=== PATIENT | male | born 1950 | race African-American/Black ===

== ENCOUNTER 2018-11-13 13:38 | Inpatient (IN) | payer MEDICARE, BC ==
[~2018-11-13] VITALS: Ht 167.6 cm; Wt 94.5 kg
[~2018-11-13 13:38] MED LIST: CHOL100046 MT; CLOP75TA16 MT; GABA-531 PO; LOSA100T3 MT; METF-416 MT
[2018-11-13] MEDS ORDERED: SODIUM CHLORIDE 0.9% 1,000 ML IV ONE (21:36)
[2018-11-13] MEDS ORDERED: PIPERACILLIN/TAZ 3.375G PREMIX 50 ML IV NR (21:39)
[2018-11-13] MEDS ORDERED: PIPERACILLIN/TAZOBACTAM 3.375GM/50ML PREMIX IV ONE (21:45)
[2018-11-13] MEDS ORDERED: VANCOMYCIN 1 G PREMIX 200 ML IV SCH (21:45)
[2018-11-13 22:41] LABS: CHLORIDE 105 mEq/L (98-107)
[2018-11-13 22:43] LABS: PROTHROMBIN TIME 10.2 sec (9.1-11.1)
[2018-11-13 23:39] LABS: BASOPHILS % 1.1 % (0.0-2.0); EOSINOPHILS % 1.1 % (0.0-5.0); HEMATOCRIT. 33.7 % (42.0-52.0); LYMPHOCYTES % 18.2 % (20.0-50.0); MEAN CORPUSCULAR HEMOGLOBIN 27.5 pg (28.0-32.0); MEAN CORPUSCULAR VOLUME 84.1 fL (80.0-94.0); MEAN PLATELET VOLUME 8.1 fl (7.4-10.4); MONOCYTES % 6.5 % (2.0-8.0); NEUTROPHILS % 73.1 % (40.0-76.0); PLATELET 312 x1000/uL (130-400); RED CELL DISTRIBUTION WIDTH 13.2 % (11.6-14.6)
[2018-11-14] VITALS (7 sets, daily range): BP systolic 119–142; BP diastolic 47–74
[2018-11-14] MEDS ORDERED: CLONIDINE 0.1MG TABLET PO PRN (00:45)
[2018-11-14] MEDS ORDERED: TRAMADOL 50MG TABLET PO PRN (04:00)
[2018-11-14] MEDS ORDERED: ACETAMINOPHEN 325MG TABLET PO PRN (04:00)
[2018-11-14] MEDS ORDERED: DEXTROSE 50% WATER 50ML SYRINGE IV PRN (04:00)
[2018-11-14] MEDS ORDERED: INSULIN GLARGINE UD 100 UNITS/ML SYR SUBCUT SCH (05:00)
[2018-11-14] MEDS: BLOOD SUGAR DIAGNOSTIC STRIP TEST SCH ×4 (07:44→21:00)
[2018-11-14] MEDS: LOSARTAN POTASSIUM 100 MG TABLET PO SCH (08:53)
[2018-11-14] MEDS: GABAPENTIN 300MG CAPSULE PO SCH ×2 (08:53→16:30)
[2018-11-14] MEDS: CHOLECALCIFEROL (D3) 1000 UNIT TABLET PO SCH (08:53)
[2018-11-14] MEDS: CLOPIDOGREL 75MG TABLET PO SCH (08:53)
[2018-11-14] MEDS ORDERED: MEDICATION NOT ON FORMULARY EA (Cholecalciferol (Vitamin D) 1 CAP) MT SCH (09:00)
[2018-11-14] MEDS ORDERED: MEDICATION NOT ON FORMULARY EA (Clopidogrel Bisulfate (Plavix) 1 TAB) MT SCH (09:00)
[2018-11-14] MEDS ORDERED: MEDICATION NOT ON FORMULARY EA (Gabapentin 300 MG) PO SCH (09:00)
[2018-11-14] MEDS ORDERED: MEDICATION NOT ON FORMULARY EA (Losartan Potassium (Cozaar) 1 TAB) MT SCH (09:00)
[2018-11-14] MEDS: INSULIN LISPRO 100 UNITS/ML SUBCUT SCH ×4 (09:07→21:00)
[2018-11-14 10:09] LABS: CHLORIDE 109 mEq/L (98-107)
[2018-11-14] MEDS: PIPERACILLIN/TAZ 3.375G PREMIX 50 ML IV SCH ×3 (10:52→23:28)
[2018-11-14] MEDS ORDERED: VANCOMYCIN 1500MG in DEXTROSE 5% WATER 250ML IV NR (11:00)
[2018-11-14] MEDS ORDERED: INFLUENZA VIRUS VACCINE(AFLURIA) 0.5ML SYR IM ONE (12:00)
[2018-11-14 12:33] LABS: BASOPHILS % 0.7 % (0.0-2.0); EOSINOPHILS % 1.7 % (0.0-5.0); HEMATOCRIT. 32.7 % (42.0-52.0); HEMOGLOBIN. 10.8 g/dL (14.0-18.0); LYMPHOCYTES % 18.6 % (20.0-50.0); MEAN CORPUSCULAR VOLUME 84.5 fL (80.0-94.0); MEAN PLATELET VOLUME 8.5 fl (7.4-10.4); MONOCYTES % 7.2 % (2.0-8.0); NEUTROPHILS % 71.8 % (40.0-76.0); PLATELET 308 x1000/uL (130-400); RED BLOOD CELL COUNT 3.86 mill/uL (4.7-6.1); RED CELL DISTRIBUTION WIDTH 12.9 % (11.6-14.6)
[2018-11-15] VITALS: BP 123/65
[2018-11-15 04:00] VITALS: BP 126/67
[2018-11-15] MEDS: PIPERACILLIN/TAZ 3.375G PREMIX 50 ML IV SCH ×4 (05:04→21:14)
[2018-11-15] MEDS: VANCOMYCIN 1 G PREMIX 200 ML IV SCH ×2 (05:04→22:32)
[2018-11-15] MEDS: BLOOD SUGAR DIAGNOSTIC STRIP TEST SCH ×4 (06:26→21:14)
[2018-11-15] MEDS: INSULIN LISPRO 100 UNITS/ML SUBCUT SCH ×4 (06:26→22:29)
[2018-11-15 08:00] VITALS: BP 131/71
[2018-11-15] MEDS: CHOLECALCIFEROL (D3) 1000 UNIT TABLET PO SCH (09:30)
[2018-11-15] MEDS: GABAPENTIN 300MG CAPSULE PO SCH ×2 (09:30→17:18)
[2018-11-15] MEDS: CLOPIDOGREL 75MG TABLET PO SCH (09:30)
[2018-11-15] MEDS: LOSARTAN POTASSIUM 100 MG TABLET PO SCH (09:30)
[2018-11-15] MEDS: INSULIN GLARGINE UD 100 UNITS/ML SYR SUBCUT SCH (09:36)
[2018-11-15] MEDS ORDERED: IOHEXOL-350 100 ML BOTTLE ONE (10:46)
[2018-11-15 12:00] VITALS: BP 122/64
[2018-11-15 13:13] LABS: HEMATOCRIT 33.2 % (42.0-52.0); HEMOGLOBIN 10.7 g/dL (14.0-18.0); MEAN CORPUSCULAR HEMOGLOBIN 27.3 pg (28.0-32.0); MEAN CORPUSCULAR VOLUME 84.8 fL (80.0-94.0); PLATELET 317 x1000/uL (130-400); RED BLOOD CELL COUNT 3.91 mill/uL (4.7-6.1); RED CELL DISTRIBUTION WIDTH 13.3 % (11.6-14.6)
[2018-11-15 16:00] VITALS: BP 132/74
[2018-11-15 20:00] VITALS: BP 138/69
[2018-11-16] VITALS: BP 130/70
[2018-11-16 04:00] VITALS: BP 125/69
[2018-11-16] MEDS: PIPERACILLIN/TAZ 3.375G PREMIX 50 ML IV SCH ×4 (04:16→21:06)
[2018-11-16] MEDS: BLOOD SUGAR DIAGNOSTIC STRIP TEST SCH ×4 (07:20→21:06)
[2018-11-16 08:00] VITALS: BP 127/69
[2018-11-16] MEDS: CHOLECALCIFEROL (D3) 1000 UNIT TABLET PO SCH (09:00)
[2018-11-16] MEDS: LOSARTAN POTASSIUM 100 MG TABLET PO SCH (09:00)
[2018-11-16] MEDS: GABAPENTIN 300MG CAPSULE PO SCH ×2 (09:00→17:05)
[2018-11-16] MEDS: CLOPIDOGREL 75MG TABLET PO SCH (09:00)
[2018-11-16] MEDS: INSULIN LISPRO 100 UNITS/ML SUBCUT SCH ×4 (09:57→21:53)
[2018-11-16] MEDS: INSULIN GLARGINE UD 100 UNITS/ML SYR SUBCUT SCH (10:40)
[2018-11-16 12:00] VITALS: BP 144/65
[2018-11-16 16:00] VITALS: BP 142/75
[2018-11-16] MEDS ORDERED: SODIUM CHLORIDE 0.9% 1,000 ML IV ONE (18:45)
[2018-11-16 20:00] VITALS: BP 166/71
[2018-11-16] MEDS ORDERED: VANCOMYCIN 1 G PREMIX 200 ML IV SCH (21:00)
[2018-11-17] VITALS (17 sets, daily range): BP systolic 123–164; BP diastolic 64–93
[2018-11-17] MEDS: PIPERACILLIN/TAZ 3.375G PREMIX 50 ML IV SCH ×3 (05:02→20:58)
[2018-11-17 06:23] LABS: PROTHROMBIN TIME 10.5 sec (9.1-11.1)
[2018-11-17 06:31] LABS: BASOPHILS % 0.9 % (0.0-2.0); EOSINOPHILS % 3.7 % (0.0-5.0); HEMATOCRIT. 31.3 % (42.0-52.0); HEMOGLOBIN. 10.2 g/dL (14.0-18.0); LYMPHOCYTES % 26.1 % (20.0-50.0); MEAN CORPUSCULAR HEMOGLOBIN 27.3 pg (28.0-32.0); MEAN CORPUSCULAR VOLUME 83.6 fL (80.0-94.0); MEAN PLATELET VOLUME 8.3 fl (7.4-10.4); MONOCYTES % 6.4 % (2.0-8.0); NEUTROPHILS % 62.9 % (40.0-76.0); PLATELET 338 x1000/uL (130-400); RED BLOOD CELL COUNT 3.75 mill/uL (4.7-6.1)
[2018-11-17] MEDS: BLOOD SUGAR DIAGNOSTIC STRIP TEST SCH ×4 (06:38→20:57)
[2018-11-17] MEDS: INSULIN LISPRO 100 UNITS/ML SUBCUT SCH ×4 (07:32→21:00)
[2018-11-17] MEDS: GABAPENTIN 300MG CAPSULE PO SCH ×2 (09:00→17:00)
[2018-11-17] MEDS: LOSARTAN POTASSIUM 100 MG TABLET PO SCH (09:00)
[2018-11-17] MEDS: CLOPIDOGREL 75MG TABLET PO SCH (09:00)
[2018-11-17] MEDS: CHOLECALCIFEROL (D3) 1000 UNIT TABLET PO SCH (09:00)
[2018-11-17 11:52] LABS: CREATINE KINASE 55 IU/L (39-308)
[2018-11-17] MEDS: INSULIN GLARGINE UD 100 UNITS/ML SYR SUBCUT SCH (14:10)
[2018-11-17] MEDS: LACTOBACILLUS GG CAPSULE PO SCH (14:10)
[2018-11-17] MEDS ORDERED: HEPARIN SODIUM 1,000 UNIT/1ML VIAL IV ONE (16:01)
[2018-11-17] MEDS ORDERED: LIDOCAINE HCL 1% 20ML VIAL (Pyxis) INJ ONE (17:36)
[2018-11-17] MEDS ORDERED: IODIXANOL 320MG/ML 100 ML BOTTLE IV ONE (17:36)
[2018-11-17] MEDS ORDERED: MIDAZOLAM HCL 2 MG/2 ML VIAL ONE (18:10)
[2018-11-17] MEDS ORDERED: FENTANYL CITRATE/PF 50MCG/ML 2ML VIAL ONE (18:10)
[2018-11-17] MEDS ORDERED: IOHEXOL-300 100 ML BOTTLE ONE (18:15)
[2018-11-17] MEDS ORDERED: CLOPIDOGREL 75MG TABLET PO SCH (19:15)
[2018-11-18] VITALS (9 sets, daily range): BP systolic 100–161; BP diastolic 56–77
[2018-11-18] MEDS: PIPERACILLIN/TAZ 3.375G PREMIX 50 ML IV SCH ×5 (02:18→21:00)
[2018-11-18] MEDS: BLOOD SUGAR DIAGNOSTIC STRIP TEST SCH ×4 (06:00→20:55)
[2018-11-18 07:11] LABS: BASOPHILS % 0.7 % (0.0-2.0); EOSINOPHILS % 2.5 % (0.0-5.0); HEMATOCRIT. 32.9 % (42.0-52.0); HEMOGLOBIN. 10.8 g/dL (14.0-18.0); LYMPHOCYTES % 16.2 % (20.0-50.0); MEAN CORPUSCULAR HEMOGLOBIN 27.4 pg (28.0-32.0); MEAN CORPUSCULAR VOLUME 83.7 fL (80.0-94.0); MEAN PLATELET VOLUME 8.2 fl (7.4-10.4); MONOCYTES % 5.8 % (2.0-8.0); NEUTROPHILS % 74.8 % (40.0-76.0); PLATELET 364 x1000/uL (130-400); RED BLOOD CELL COUNT 3.93 mill/uL (4.7-6.1)
[2018-11-18] MEDS: INSULIN LISPRO 100 UNITS/ML SUBCUT SCH ×4 (07:20→20:55)
[2018-11-18] MEDS: LACTOBACILLUS GG CAPSULE PO SCH (08:55)
[2018-11-18] MEDS: GABAPENTIN 300MG CAPSULE PO SCH ×2 (08:55→17:00)
[2018-11-18] MEDS: CLOPIDOGREL 75MG TABLET PO SCH (08:56)
[2018-11-18] MEDS: LOSARTAN POTASSIUM 100 MG TABLET PO SCH (08:56)
[2018-11-18] MEDS: CHOLECALCIFEROL (D3) 1000 UNIT TABLET PO SCH (08:56)
[2018-11-18] MEDS: INSULIN GLARGINE UD 100 UNITS/ML SYR SUBCUT SCH (10:00)
[2018-11-19] VITALS (8 sets, daily range): BP systolic 102–133; BP diastolic 40–74
[2018-11-19] MEDS: PIPERACILLIN/TAZ 3.375G PREMIX 50 ML IV SCH ×2 (03:22→09:05)
[2018-11-19] MEDS: INSULIN LISPRO 100 UNITS/ML SUBCUT SCH ×2 (06:33→13:02)
[2018-11-19] MEDS: BLOOD SUGAR DIAGNOSTIC STRIP TEST SCH ×2 (06:33→11:50)
[2018-11-19 06:47] LABS: BASOPHILS % 0.7 % (0.0-2.0); EOSINOPHILS % 2.6 % (0.0-5.0); HEMATOCRIT. 32.2 % (42.0-52.0); HEMOGLOBIN. 10.5 g/dL (14.0-18.0); LYMPHOCYTES % 22.5 % (20.0-50.0); MEAN CORPUSCULAR HEMOGLOBIN 27.5 pg (28.0-32.0); MEAN CORPUSCULAR VOLUME 84.7 fL (80.0-94.0); MEAN PLATELET VOLUME 8.2 fl (7.4-10.4); MONOCYTES % 6.2 % (2.0-8.0); PLATELET 349 x1000/uL (130-400); RED CELL DISTRIBUTION WIDTH 13.3 % (11.6-14.6)
[2018-11-19] MEDS: GABAPENTIN 300MG CAPSULE PO SCH (09:04)
[2018-11-19] MEDS: CLOPIDOGREL 75MG TABLET PO SCH (09:04)
[2018-11-19] MEDS: CHOLECALCIFEROL (D3) 1000 UNIT TABLET PO SCH (09:05)
[2018-11-19] MEDS: LACTOBACILLUS GG CAPSULE PO SCH (09:05)
[2018-11-19] MEDS: LOSARTAN POTASSIUM 100 MG TABLET PO SCH (09:05)
[2018-11-19] MEDS: INSULIN GLARGINE UD 100 UNITS/ML SYR SUBCUT SCH (09:32)
[2018-12-14] MEDS ORDERED: AMOX-424 PO (13:55)
[2018-12-14] MEDS ORDERED: FERR325T6 PO (13:55)
[2018-12-14] MEDS ORDERED: ASPI-1159 PO (13:55)
== END 2018-11-19 17:30 | disposition home or self-care (01) | DRG 271 ==
LOC: ER 13:38 → 6EST 23:06 → EDBEDREQ 23:08 → EDBEDREQTM 23:08 → ENRESERV 23:53 → 3WST 11-17 19:32
PROVIDERS: ADMIT Emergency Medicine; ATTEND Emergency Medicine
PROC: 047K34Z Dilation of Right Femoral Artery with Drug-eluting Intraluminal Device, Percutaneous Approach (ICD-10-PCS; principal; 2018-11-17)
PROC: 04CK3ZZ Extirpation of Matter from Right Femoral Artery, Percutaneous Approach (ICD-10-PCS; 2018-11-17)
PROC: 047T3ZZ Dilation of Right Peroneal Artery, Percutaneous Approach (ICD-10-PCS; 2018-11-17)
PROC: 047M3ZZ Dilation of Right Popliteal Artery, Percutaneous Approach (ICD-10-PCS; 2018-11-17)
PROC: 04CM3ZZ Extirpation of Matter from Right Popliteal Artery, Percutaneous Approach (ICD-10-PCS; 2018-11-17)
PROC: B41F1ZZ Fluoroscopy of Right Lower Extremity Arteries using Low Osmolar Contrast (ICD-10-PCS; 2018-11-17)
DX: T82.856A Stenosis of peripheral vascular stent, initial encounter (principal); E11.52 Type 2 diabetes mellitus with diabetic peripheral angiopathy with gangrene; N17.9 Acute kidney failure, unspecified; I70.261 Atherosclerosis of native arteries of extremities with gangrene, right leg; D64.9 Anemia, unspecified; E11.621 Type 2 diabetes mellitus with foot ulcer; L97.519 Non-pressure chronic ulcer of other part of right foot with unspecified severity; N18.9 Chronic kidney disease, unspecified; E11.22 Type 2 diabetes mellitus with diabetic chronic kidney disease; E11.40 Type 2 diabetes mellitus with diabetic neuropathy, unspecified; E11.628 Type 2 diabetes mellitus with other skin complications; I12.9 Hypertensive chronic kidney disease with stage 1 through stage 4 chronic kidney disease, or unspecified chronic kidney disease; Y83.8 Other surgical procedures as the cause of abnormal reaction of the patient, or of later complication, without mention of misadventure at the time of the procedure; Y92.89 Other specified places as the place of occurrence of the external cause; Z87.891 Personal history of nicotine dependence; Z89.612 Acquired absence of left leg above knee; Z79.899 Other long term (current) drug therapy; Z79.84 Long term (current) use of oral hypoglycemic drugs; Z89.411 Acquired absence of right great toe; Z95.828 Presence of other vascular implants and grafts
CPT/HCPCS: 36415; 37227; 37228; 71045; 73630; 75635; 75710; 76770; 80048; 80202; 82550; 82962; 83605; 84484; 85027; 85347; 85651; 87070; 87077; 87186; 90686; 93005; 93922; 96365; 96366; 99285; C1725; C1760; C1769; C1874; C1885; C1887; C1893; C1894; J1644; J1815; J2250; J2543; J3010; J3370; J3490; J7030; J7050; J7060; Q9967

== ENCOUNTER 2018-12-18 18:05 | Inpatient (IN) | payer MEDICARE, BC ==
[~2018-12-18] VITALS: Ht 167.6 cm; Wt 90.3 kg
[~2018-12-18 18:05] MED LIST changes: +AMOX-424 PO; +ASPI-1159 PO; +FERR325T6 PO
[2018-12-18] MEDS ORDERED: DEXTROSE 50% WATER 50ML SYRINGE IV PRN (19:45)
[2018-12-18] MEDS ORDERED: DOCUSATE SODIUM 100MG CAPSULE PO PRN (19:45)
[2018-12-18] MEDS ORDERED: CLONIDINE 0.1MG TABLET PO PRN (19:45)
[2018-12-18] MEDS ORDERED: HYDROCODONE/ACETAMINOPHEN 5/325MG TABLET PO PRN (19:45)
[2018-12-18] MEDS ORDERED: MAGNESIUM/ALUMINUM HYDROXIDE/SIMETHICONE 30ML UDC PO PRN (19:45)
[2018-12-18] MEDS ORDERED: IPRATROPIUM/ALBUTEROL 0.5-3(2.5)MG/3ML NEB HHN PRN (19:45)
[2018-12-18] MEDS ORDERED: ONDANSETRON HCL 4MG/2ML INJ IV PRN (19:45)
[2018-12-18] MEDS ORDERED: DIPHENOXYLATE/ATROPINE 2.5/0.025MG TABLET PO PRN (19:45)
[2018-12-18] MEDS ORDERED: DIPHENHYDRAMINE 50MG/ML VIAL IV PRN (19:45)
[2018-12-18 20:00] VITALS: BP 135/62
[2018-12-18 20:20] VITALS: BP 135/62
[2018-12-18] MEDS: HYDROCODONE/APAP 7.5/325MG 1 TAB TABLET PO PRN (20:43)
[2018-12-18] MEDS ORDERED: ENOXAPARIN 40MG/0.4ML SYR SUBCUT SCH (21:00)
[2018-12-18] MEDS ORDERED: BLOOD SUGAR DIAGNOSTIC STRIP TEST SCH (21:00)
[2018-12-18] MEDS: BLOOD SUGAR DIAGNOSTIC STRIP TEST SCH (21:40)
[2018-12-18] MEDS: SODIUM CHLORIDE 0.9% INJ 3ML FLUSH IVF SCH (21:54)
[2018-12-18] MEDS: PIPERACILLIN/TAZ 3.375G PREMIX 50 ML IV SCH (21:54)
[2018-12-18] MEDS: INSULIN LISPRO 100 UNITS/ML SUBCUT SCH (21:56)
[2018-12-19] MEDS: SODIUM CHLORIDE 0.9% INJ 3ML FLUSH IVF SCH ×2 (05:09→13:41)
[2018-12-19] MEDS: PIPERACILLIN/TAZ 3.375G PREMIX 50 ML IV SCH ×3 (05:09→21:22)
[2018-12-19] MEDS: INSULIN LISPRO 100 UNITS/ML SUBCUT SCH ×4 (06:20→21:20)
[2018-12-19] MEDS: BLOOD SUGAR DIAGNOSTIC STRIP TEST SCH ×4 (06:20→21:00)
[2018-12-19 06:39] LABS: BASOPHILS % 0.9 % (0.0-2.0); EOSINOPHILS % 7.2 % (0.0-5.0); HEMATOCRIT. 22.5 % (42.0-52.0); HEMOGLOBIN. 7.6 g/dL (14.0-18.0); LYMPHOCYTES % 33.4 % (20.0-50.0); MEAN CORPUSCULAR HEMOGLOBIN 27.7 pg (28.0-32.0); MEAN CORPUSCULAR VOLUME 82.5 fL (80.0-94.0); MEAN PLATELET VOLUME 8.5 fl (7.4-10.4); MONOCYTES % 6.5 % (2.0-8.0); PLATELET 255 x1000/uL (130-400); RED BLOOD CELL COUNT 2.73 mill/uL (4.7-6.1); RED CELL DISTRIBUTION WIDTH 14.5 % (11.6-14.6)
[2018-12-19 06:49] LABS: CHLORIDE 107 mEq/L (98-107)
[2018-12-19 08:00] VITALS: BP 124/57
[2018-12-19] MEDS: HYDROCODONE/APAP 7.5/325MG 1 TAB TABLET PO PRN ×2 (09:37→19:24)
[2018-12-19] MEDS: DOCUSATE SODIUM 100MG CAPSULE PO SCH (16:22)
[2018-12-19] MEDS ORDERED: NA PHOS,M-B/NA PHOS,DI-BA ENEMA 118ML PR PRN (19:00)
[2018-12-19 20:00] VITALS: BP 121/60
[2018-12-19] MEDS ORDERED: LACTULOSE 20G/30ML UDC PO PRN (21:00)
[2018-12-19] MEDS: INSULIN GLARGINE UD 100 UNITS/ML SYR SUBCUT SCH (21:20)
[2018-12-20] VITALS (15 sets, daily range): BP systolic 119–133; BP diastolic 53–97
[2018-12-20] MEDS: PIPERACILLIN/TAZ 3.375G PREMIX 50 ML IV SCH ×3 (05:12→21:27)
[2018-12-20] MEDS: SODIUM CHLORIDE 0.9% INJ 3ML FLUSH IVF SCH ×3 (05:12→21:33)
[2018-12-20] MEDS: BLOOD SUGAR DIAGNOSTIC STRIP TEST SCH ×4 (06:03→21:27)
[2018-12-20] MEDS: INSULIN LISPRO 100 UNITS/ML SUBCUT SCH ×4 (06:03→21:27)
[2018-12-20 08:00] LABS: BASOPHILS % 1.1 % (0.0-2.0); EOSINOPHILS % 7.6 % (0.0-5.0); LYMPHOCYTES % 33.6 % (20.0-50.0); MEAN CORPUSCULAR HEMOGLOBIN 27.4 pg (28.0-32.0); MEAN PLATELET VOLUME 8.6 fl (7.4-10.4); MONOCYTES % 6.5 % (2.0-8.0); NEUTROPHILS % 51.2 % (40.0-76.0); PLATELET 242 x1000/uL (130-400); RED BLOOD CELL COUNT 2.45 mill/uL (4.7-6.1); RED CELL DISTRIBUTION WIDTH 14.5 % (11.6-14.6)
[2018-12-20] MEDS: DOCUSATE SODIUM 100MG CAPSULE PO SCH ×2 (08:35→17:25)
[2018-12-20] MEDS: HYDROCODONE/APAP 7.5/325MG 1 TAB TABLET PO PRN ×2 (08:40→22:16)
[2018-12-20 09:40] LABS: HEMATOCRIT. 20.4 % (42.0-52.0); HEMOGLOBIN. 6.7 g/dL (14.0-18.0)
[2018-12-20] MEDS: INSULIN GLARGINE UD 100 UNITS/ML SYR SUBCUT SCH (21:41)
[2018-12-21 00:15] VITALS: BP 131/60
[2018-12-21 01:15] VITALS: BP 121/57
[2018-12-21 05:50] LABS: BASOPHILS % 0.9 % (0.0-2.0); EOSINOPHILS % 7.2 % (0.0-5.0); HEMATOCRIT. 29.1 % (42.0-52.0); HEMOGLOBIN. 10.1 g/dL (14.0-18.0); LYMPHOCYTES % 32.8 % (20.0-50.0); MEAN CORPUSCULAR HEMOGLOBIN 28.7 pg (28.0-32.0); MEAN CORPUSCULAR VOLUME 82.4 fL (80.0-94.0); MEAN PLATELET VOLUME 8.3 fl (7.4-10.4); MONOCYTES % 5.7 % (2.0-8.0); NEUTROPHILS % 53.4 % (40.0-76.0); PLATELET 244 x1000/uL (130-400); RED BLOOD CELL COUNT 3.53 mill/uL (4.7-6.1); RED CELL DISTRIBUTION WIDTH 15.9 % (11.6-14.6)
[2018-12-21 06:49] LABS: FOLIC ACID (FOLATE) SERUM 15.7 ng/mL (>5.38)
[2018-12-21] MEDS: SODIUM CHLORIDE 0.9% INJ 3ML FLUSH IVF SCH ×3 (06:51→21:33)
[2018-12-21] MEDS: PIPERACILLIN/TAZ 3.375G PREMIX 50 ML IV SCH ×3 (06:51→21:25)
[2018-12-21] MEDS: BLOOD SUGAR DIAGNOSTIC STRIP TEST SCH ×4 (06:52→21:23)
[2018-12-21 06:57] LABS: PHOSPHORUS 3.3 mg/dL (2.5-4.9)
[2018-12-21] MEDS: INSULIN LISPRO 100 UNITS/ML SUBCUT SCH ×4 (07:37→21:39)
[2018-12-21 08:00] VITALS: BP 134/53
[2018-12-21] MEDS: DOCUSATE SODIUM 100MG CAPSULE PO SCH ×2 (08:40→17:21)
[2018-12-21] MEDS: ACETAMINOPHEN 325MG TABLET PO PRN (08:40)
[2018-12-21 12:00] LABS: PROSTRATE SPECIFIC AG TOTAL 0.7 ng/mL (0.0-4.0)
[2018-12-21] MEDS ORDERED: CYANOCOBALAMIN 1000MCG/ML VIAL IM SCH (14:15)
[2018-12-21] MEDS: ZINC SULFATE 220 MG ( 50 ) CAPSULE PO SCH (14:42)
[2018-12-21] MEDS: ASCORBIC ACID 500 MG TABLET PO SCH (14:42)
[2018-12-21 20:00] VITALS: BP 139/55
[2018-12-21] MEDS: INSULIN GLARGINE UD 100 UNITS/ML SYR SUBCUT SCH (21:43)
[2018-12-22] MEDS: SODIUM CHLORIDE 0.9% INJ 3ML FLUSH IVF SCH ×3 (06:32→22:50)
[2018-12-22] MEDS: BLOOD SUGAR DIAGNOSTIC STRIP TEST SCH ×4 (06:32→21:27)
[2018-12-22] MEDS: INSULIN LISPRO 100 UNITS/ML SUBCUT SCH ×4 (07:00→21:26)
[2018-12-22 07:35] LABS: EOSINOPHILS % 6.7 % (0.0-5.0); HEMOGLOBIN. 10.3 g/dL (14.0-18.0); MEAN CORPUSCULAR HEMOGLOBIN 27.9 pg (28.0-32.0); MEAN CORPUSCULAR VOLUME 83.8 fL (80.0-94.0); MEAN PLATELET VOLUME 8.5 fl (7.4-10.4); MONOCYTES % 6.5 % (2.0-8.0); NEUTROPHILS % 57.8 % (40.0-76.0); PLATELET 261 x1000/uL (130-400); RED CELL DISTRIBUTION WIDTH 16.2 % (11.6-14.6)
[2018-12-22 08:00] VITALS: BP 146/56
[2018-12-22] MEDS: ASCORBIC ACID 500 MG TABLET PO SCH (08:41)
[2018-12-22] MEDS: ZINC SULFATE 220 MG ( 50 ) CAPSULE PO SCH (08:41)
[2018-12-22] MEDS: DOCUSATE SODIUM 100MG CAPSULE PO SCH ×2 (08:41→17:17)
[2018-12-22] MEDS: HYDROCODONE/APAP 7.5/325MG 1 TAB TABLET PO PRN ×2 (08:43→22:51)
[2018-12-22] MEDS: PIPERACILLIN/TAZ 3.375G PREMIX 50 ML IV SCH ×2 (15:01→21:30)
[2018-12-22 20:00] VITALS: BP 146/79
[2018-12-22] MEDS: INSULIN GLARGINE UD 100 UNITS/ML SYR SUBCUT SCH (22:55)
[2018-12-23] MEDS: INSULIN LISPRO 100 UNITS/ML SUBCUT SCH ×4 (06:15→21:42)
[2018-12-23] MEDS: BLOOD SUGAR DIAGNOSTIC STRIP TEST SCH ×4 (06:15→21:24)
[2018-12-23] MEDS: SODIUM CHLORIDE 0.9% INJ 3ML FLUSH IVF SCH ×3 (06:16→21:44)
[2018-12-23] MEDS: PIPERACILLIN/TAZ 3.375G PREMIX 50 ML IV SCH ×3 (06:16→21:43)
[2018-12-23 08:23] VITALS: BP 138/71
[2018-12-23] MEDS: ASCORBIC ACID 500 MG TABLET PO SCH (08:58)
[2018-12-23] MEDS: ZINC SULFATE 220 MG ( 50 ) CAPSULE PO SCH (08:58)
[2018-12-23] MEDS: DOCUSATE SODIUM 100MG CAPSULE PO SCH ×2 (08:58→16:42)
[2018-12-23] MEDS: ACETAMINOPHEN 325MG TABLET PO PRN (12:55)
[2018-12-23] MEDS ORDERED: HYDROCODONE/APAP 7.5/325MG 1 TAB TABLET PO PRN (19:45)
[2018-12-23] MEDS ORDERED: HYDROCODONE/ACETAMINOPHEN 5/325MG TABLET PO PRN ×2 (19:45→20:15)
[2018-12-23 20:00] VITALS: BP 129/50
[2018-12-23] MEDS: HYDROCODONE/APAP 7.5/325MG 1 TAB TABLET PO PRN (20:25)
[2018-12-23] MEDS: INSULIN GLARGINE UD 100 UNITS/ML SYR SUBCUT SCH (21:43)
[2018-12-24] MEDS: SODIUM CHLORIDE 0.9% INJ 3ML FLUSH IVF SCH ×3 (05:11→21:12)
[2018-12-24] MEDS: PIPERACILLIN/TAZ 3.375G PREMIX 50 ML IV SCH ×3 (05:11→21:12)
[2018-12-24] MEDS: BLOOD SUGAR DIAGNOSTIC STRIP TEST SCH ×4 (06:22→21:05)
[2018-12-24] MEDS: INSULIN LISPRO 100 UNITS/ML SUBCUT SCH ×4 (06:22→21:11)
[2018-12-24 06:30] LABS: BASOPHILS % 1.4 % (0.0-2.0); EOSINOPHILS % 7.3 % (0.0-5.0); HEMATOCRIT. 30.2 % (42.0-52.0); MEAN CORPUSCULAR VOLUME 84.3 fL (80.0-94.0); MEAN PLATELET VOLUME 8.5 fl (7.4-10.4); MONOCYTES % 5.5 % (2.0-8.0); NEUTROPHILS % 50.8 % (40.0-76.0); PLATELET 259 x1000/uL (130-400); RED BLOOD CELL COUNT 3.59 mill/uL (4.7-6.1); RED CELL DISTRIBUTION WIDTH 16.1 % (11.6-14.6)
[2018-12-24 08:00] VITALS: BP 133/71
[2018-12-24] MEDS: DOCUSATE SODIUM 100MG CAPSULE PO SCH ×2 (08:20→16:31)
[2018-12-24] MEDS: ZINC SULFATE 220 MG ( 50 ) CAPSULE PO SCH (08:20)
[2018-12-24] MEDS: HYDROCODONE/APAP 7.5/325MG 1 TAB TABLET PO PRN ×2 (08:21→21:24)
[2018-12-24] MEDS: ASCORBIC ACID 500 MG TABLET PO SCH (08:21)
[2018-12-24 20:00] VITALS: BP 144/56
[2018-12-24] MEDS: INSULIN GLARGINE UD 100 UNITS/ML SYR SUBCUT SCH (21:12)
[2018-12-25] MEDS: PIPERACILLIN/TAZ 3.375G PREMIX 50 ML IV SCH ×3 (05:22→21:37)
[2018-12-25] MEDS: SODIUM CHLORIDE 0.9% INJ 3ML FLUSH IVF SCH ×3 (05:22→21:37)
[2018-12-25] MEDS: BLOOD SUGAR DIAGNOSTIC STRIP TEST SCH ×4 (06:14→21:37)
[2018-12-25] MEDS: INSULIN LISPRO 100 UNITS/ML SUBCUT SCH ×4 (06:15→21:48)
[2018-12-25 08:00] VITALS: BP 140/64
[2018-12-25] MEDS: ASCORBIC ACID 500 MG TABLET PO SCH (08:26)
[2018-12-25] MEDS: DOCUSATE SODIUM 100MG CAPSULE PO SCH ×2 (08:26→17:13)
[2018-12-25] MEDS: ZINC SULFATE 220 MG ( 50 ) CAPSULE PO SCH (08:26)
[2018-12-25 19:09] LABS: 25-HYDROXY VITAMIN D3 27 ng/mL (.)
[2018-12-25 20:00] VITALS: BP 143/64
[2018-12-25] MEDS: INSULIN GLARGINE UD 100 UNITS/ML SYR SUBCUT SCH (21:38)
[2018-12-25] MEDS: HYDROCODONE/APAP 7.5/325MG 1 TAB TABLET PO PRN (21:49)
[2018-12-26] MEDS: SODIUM CHLORIDE 0.9% INJ 3ML FLUSH IVF SCH ×3 (06:29→21:55)
[2018-12-26] MEDS: BLOOD SUGAR DIAGNOSTIC STRIP TEST SCH ×4 (06:29→21:29)
[2018-12-26] MEDS: PIPERACILLIN/TAZ 3.375G PREMIX 50 ML IV SCH ×3 (06:29→21:54)
[2018-12-26 07:16] LABS: EOSINOPHILS % 6.7 % (0.0-5.0); HEMATOCRIT. 32.6 % (42.0-52.0); HEMOGLOBIN. 10.6 g/dL (14.0-18.0); LYMPHOCYTES % 34.3 % (20.0-50.0); MEAN CORPUSCULAR HEMOGLOBIN 27.7 pg (28.0-32.0); MEAN CORPUSCULAR VOLUME 84.6 fL (80.0-94.0); MEAN PLATELET VOLUME 8.7 fl (7.4-10.4); MONOCYTES % 6.6 % (2.0-8.0); NEUTROPHILS % 51.4 % (40.0-76.0); PLATELET 271 x1000/uL (130-400); RED BLOOD CELL COUNT 3.85 mill/uL (4.7-6.1)
[2018-12-26 08:00] VITALS: BP 139/68
[2018-12-26] MEDS: INSULIN LISPRO 100 UNITS/ML SUBCUT SCH ×4 (09:00→21:55)
[2018-12-26] MEDS: ZINC SULFATE 220 MG ( 50 ) CAPSULE PO SCH (10:12)
[2018-12-26] MEDS: DOCUSATE SODIUM 100MG CAPSULE PO SCH ×2 (10:12→18:00)
[2018-12-26] MEDS: ASCORBIC ACID 500 MG TABLET PO SCH (10:12)
[2018-12-26] MEDS ORDERED: ERGOCALCIFEROL 50000UNITS CAPSULE PO SCH (12:00)
[2018-12-26 20:00] VITALS: BP 142/64
[2018-12-26] MEDS: HYDROCODONE/APAP 7.5/325MG 1 TAB TABLET PO PRN (20:42)
[2018-12-26] MEDS: INSULIN GLARGINE UD 100 UNITS/ML SYR SUBCUT SCH (21:56)
[2018-12-27] MEDS: SODIUM CHLORIDE 0.9% INJ 3ML FLUSH IVF SCH ×3 (05:08→21:22)
[2018-12-27] MEDS: PIPERACILLIN/TAZ 3.375G PREMIX 50 ML IV SCH ×3 (05:08→21:22)
[2018-12-27] MEDS: INSULIN LISPRO 100 UNITS/ML SUBCUT SCH ×4 (06:14→21:00)
[2018-12-27] MEDS: BLOOD SUGAR DIAGNOSTIC STRIP TEST SCH ×4 (06:14→21:19)
[2018-12-27 08:00] VITALS: BP 118/46
[2018-12-27] MEDS: DOCUSATE SODIUM 100MG CAPSULE PO SCH ×2 (09:34→17:47)
[2018-12-27] MEDS: ASCORBIC ACID 500 MG TABLET PO SCH (09:34)
[2018-12-27] MEDS: ZINC SULFATE 220 MG ( 50 ) CAPSULE PO SCH (09:34)
[2018-12-27 20:00] VITALS: BP 146/66
[2018-12-27] MEDS: HYDROCODONE/APAP 7.5/325MG 1 TAB TABLET PO PRN (20:18)
[2018-12-27] MEDS: INSULIN GLARGINE UD 100 UNITS/ML SYR SUBCUT SCH (21:25)
[2018-12-28] MEDS: SODIUM CHLORIDE 0.9% INJ 3ML FLUSH IVF SCH ×2 (05:09→13:17)
[2018-12-28] MEDS: PIPERACILLIN/TAZ 3.375G PREMIX 50 ML IV SCH ×2 (05:09→13:11)
[2018-12-28] MEDS: BLOOD SUGAR DIAGNOSTIC STRIP TEST SCH ×2 (06:19→11:40)
[2018-12-28] MEDS: INSULIN LISPRO 100 UNITS/ML SUBCUT SCH ×2 (06:19→13:00)
[2018-12-28 08:00] VITALS: BP 134/48
[2018-12-28] MEDS: ZINC SULFATE 220 MG ( 50 ) CAPSULE PO SCH (10:12)
[2018-12-28] MEDS: DOCUSATE SODIUM 100MG CAPSULE PO SCH (10:12)
[2018-12-28] MEDS: ASCORBIC ACID 500 MG TABLET PO SCH (10:12)
[2018-12-28 12:58] VITALS: BP 134/68
[2018-12-28 13:17] VITALS: BP 134/68
[2018-12-28] MEDS: HYDROCODONE/APAP 7.5/325MG 1 TAB TABLET PO PRN (13:17)
== END 2018-12-28 16:06 | disposition home health service (06) | DRG 74 ==
PROVIDERS: ADMIT Physical Medicine & Rehabilitation Spinal Cord Injury Medicine; ATTEND Family Medicine Adult Medicine
PROC: 30233N1 Transfusion of Nonautologous Red Blood Cells into Peripheral Vein, Percutaneous Approach (ICD-10-PCS; principal; 2018-12-20)
DX: E11.42 Type 2 diabetes mellitus with diabetic polyneuropathy (principal); E11.52 Type 2 diabetes mellitus with diabetic peripheral angiopathy with gangrene; N17.9 Acute kidney failure, unspecified; D64.9 Anemia, unspecified; R53.81 Other malaise; E11.22 Type 2 diabetes mellitus with diabetic chronic kidney disease; N18.9 Chronic kidney disease, unspecified; E11.319 Type 2 diabetes mellitus with unspecified diabetic retinopathy without macular edema; G54.6 Phantom limb syndrome with pain; I12.9 Hypertensive chronic kidney disease with stage 1 through stage 4 chronic kidney disease, or unspecified chronic kidney disease; E11.621 Type 2 diabetes mellitus with foot ulcer; L97.519 Non-pressure chronic ulcer of other part of right foot with unspecified severity; R26.9 Unspecified abnormalities of gait and mobility; E55.9 Vitamin D deficiency, unspecified; Z83.3 Family history of diabetes mellitus; Z97.14 Presence of artificial left leg (complete) (partial); Z89.511 Acquired absence of right leg below knee
CPT/HCPCS: 36415; 80048; 82270; 82306; 82607; 82728; 82746; 82962; 83540; 83550; 83735; 84100; 84134; 84153; 84443; 86850; 86900; 86920; 93970; 97110; 97116; 97163; 97166; 97530; 97535; J1815; J2543; J3420; J7050; P9016; G0103

== ENCOUNTER 2019-10-19 14:28 | Inpatient (IN) | payer MEDICARE, BC ==
[~2019-10-19] VITALS: Ht 195.6 cm; Wt 99.8 kg
[~2019-10-19 14:28] MED LIST changes: -ASPI-1159 PO; +ASPI-1497 PO; -CLOP75TA16 MT; +CLOP75TA4 MT
[2019-10-19 17:29] LABS: BASOPHILS % 0.9 % (0.0-2.0); CHLORIDE 115 mEq/L (98-107); EOSINOPHILS % 2.2 % (0.0-5.0); HEMATOCRIT. 36.3 % (42.0-52.0); HEMOGLOBIN. 11.4 g/dL (14.0-18.0); LYMPHOCYTES % 30.2 % (20.0-50.0); MEAN CORPUSCULAR HEMOGLOBIN 26.4 pg (28.0-32.0); MEAN CORPUSCULAR VOLUME 83.7 fL (80.0-94.0); MEAN PLATELET VOLUME 9.2 fl (7.4-10.4); MONOCYTES % 5.6 % (2.0-8.0); NEUTROPHILS % 61.1 % (40.0-76.0); PLATELET 240 x1000/uL (130-400); RED BLOOD CELL COUNT 4.33 mill/uL (4.7-6.1); RED CELL DISTRIBUTION WIDTH 15.8 % (11.6-14.6)
[2019-10-19] MEDS ORDERED: ATROPINE SULFATE 1MG/ML VIAL IV ONE (18:45)
[2019-10-19] MEDS ORDERED: MAGNESIUM/ALUMINUM HYDROXIDE/SIMETHICONE 30ML UDC PO PRN (19:45)
[2019-10-19] MEDS ORDERED: LORAZEPAM 0.5MG TABLET PO PRN (19:45)
[2019-10-19] MEDS ORDERED: ACETAMINOPHEN 325MG TABLET PO PRN (19:45)
[2019-10-19] MEDS ORDERED: GUAIFENESIN 200MG/10ML SUGAR FREE UDC PO PRN (19:45)
[2019-10-19] MEDS ORDERED: DIPHENHYDRAMINE 50MG/ML VIAL IV PRN (19:45)
[2019-10-19] MEDS ORDERED: HYDROCODONE/ACETAMINOPHEN 5/325MG TABLET PO PRN (19:45)
[2019-10-19] MEDS ORDERED: IPRATROPIUM/ALBUTEROL 0.5-3(2.5)MG/3ML NEB HHN PRN (19:45)
[2019-10-19] MEDS ORDERED: ONDANSETRON HCL 4MG/2ML INJ IV PRN (19:45)
[2019-10-19] MEDS ORDERED: SODIUM BICARBONATE 8.4% 1 MEQ/ML 50ML SYR IV ONE (21:15)
[2019-10-19] MEDS ORDERED: CALCIUM GLUCONATE 100MG/ML 10ML VIAL IV SCH (21:25)
[2019-10-19] MEDS: CLONIDINE 0.1MG TABLET PO PRN (22:06)
[2019-10-19 23:30] VITALS: BP 136/47
[2019-10-19] MEDS ORDERED: AMLODIPINE 2.5MG TABLET PO ONE (23:30)
[2019-10-19] MEDS ORDERED: DEXTROSE 50% WATER 50ML SYRINGE IV PRN (23:45)
[2019-10-20] VITALS (14 sets, daily range): BP systolic 134–164; BP diastolic 44–70
[2019-10-20] MEDS: BLOOD SUGAR DIAGNOSTIC STRIP TEST SCH ×4 (00:48→22:00)
[2019-10-20] MEDS: DOCUSATE SODIUM 100MG CAPSULE PO PRN ×2 (03:02→16:54)
[2019-10-20] MEDS: ENOXAPARIN 30MG/0.3ML SYR SUBCUT SCH ×2 (06:12→16:45)
[2019-10-20 06:47] LABS: CHLORIDE 114 mEq/L (98-107)
[2019-10-20 06:56] LABS: BASOPHILS % 0.6 % (0.0-2.0); EOSINOPHILS % 3.5 % (0.0-5.0); HEMATOCRIT. 31.8 % (42.0-52.0); HEMOGLOBIN. 10.3 g/dL (14.0-18.0); LYMPHOCYTES % 35.6 % (20.0-50.0); MEAN CORPUSCULAR HEMOGLOBIN 26.5 pg (28.0-32.0); MEAN CORPUSCULAR VOLUME 81.7 fL (80.0-94.0); MEAN PLATELET VOLUME 9.6 fl (7.4-10.4); MONOCYTES % 7.2 % (2.0-8.0); NEUTROPHILS % 53.1 % (40.0-76.0); PLATELET 217 x1000/uL (130-400); RED BLOOD CELL COUNT 3.89 mill/uL (4.7-6.1); RED CELL DISTRIBUTION WIDTH 15.8 % (11.6-14.6)
[2019-10-20 06:58] LABS: LDL CHOLESTEROL 88 mg/dL (5-100)
[2019-10-20 07:00] LABS: CREATINE KINASE 65 IU/L (39-308)
[2019-10-20 07:01] LABS: HDL CHOLESTEROL 28 mg/dL (40-59)
[2019-10-20] MEDS: INSULIN LISPRO 100 UNITS/ML SUBCUT SCH ×4 (07:18→22:04)
[2019-10-20] MEDS: GABAPENTIN 300MG CAPSULE PO SCH (16:53)
[2019-10-20 20:47] LABS: CLARITY URINE CLEAR (CLEAR); COLOR URINE YELLOW (YELLOW); KETONES URINE NEGATIVE (NEGATIVE); LEUKOCYTE ESTERASE URINE NEGATIVE (NEGATIVE); NITRITE URINE NEGATIVE (NEGATIVE); OCCULT BLOOD URINE NEGATIVE (NEGATIVE); PROTEIN URINE 2+ (NEGATIVE); SPECIFIC GRAVITY URINE 1.017 (1.005-1.030); UROBILINOGEN URINE 0.2 E.U./dL (0.2-1.0)
[2019-10-21] VITALS (16 sets, daily range): BP systolic 129–179; BP diastolic 51–81
[2019-10-21] MEDS: INSULIN LISPRO 100 UNITS/ML SUBCUT SCH ×4 (07:01→22:00)
[2019-10-21] MEDS: BLOOD SUGAR DIAGNOSTIC STRIP TEST SCH ×4 (07:01→21:35)
[2019-10-21 07:12] LABS: CHLORIDE 115 mEq/L (98-107)
[2019-10-21 07:14] LABS: PROTHROMBIN TIME 10.3 sec (9.6-11.0)
[2019-10-21 07:28] LABS: BASOPHILS % 0.8 % (0.0-2.0); HEMATOCRIT. 31.1 % (42.0-52.0); HEMOGLOBIN. 9.9 g/dL (14.0-18.0); LYMPHOCYTES % 40.2 % (20.0-50.0); MEAN CORPUSCULAR HEMOGLOBIN 26.4 pg (28.0-32.0); MEAN CORPUSCULAR VOLUME 82.6 fL (80.0-94.0); MEAN PLATELET VOLUME 9.5 fl (7.4-10.4); MONOCYTES % 7.4 % (2.0-8.0); NEUTROPHILS % 47.6 % (40.0-76.0); PLATELET 219 x1000/uL (130-400); RED BLOOD CELL COUNT 3.76 mill/uL (4.7-6.1); RED CELL DISTRIBUTION WIDTH 15.5 % (11.6-14.6)
[2019-10-21] MEDS: ASPIRIN 81MG EC TABLET PO SCH (08:32)
[2019-10-21] MEDS: GABAPENTIN 300MG CAPSULE PO SCH ×2 (08:32→16:50)
[2019-10-21] MEDS ORDERED: CLOPIDOGREL 75MG TABLET PO SCH (09:00)
[2019-10-21] MEDS ORDERED: ALBUTEROL (0.083%) 2.5MG/3ML NEB HHN NR (09:45)
[2019-10-21] MEDS ORDERED: SODIUM POLYSTYRENE SULFONATE 15 G/60 ML BOT PO NR (10:00)
[2019-10-21] MEDS ORDERED: LIDOCAINE HCL 1% 20ML VIAL (Pyxis) INJ ONE (11:46)
[2019-10-21] MEDS ORDERED: GENTAMICIN/NS IRRIGATION 500 ML IR ONE (11:46)
[2019-10-21] MEDS ORDERED: CEFAZOLIN 1000MG PREMIX 100 ML IV ONE (11:49)
[2019-10-21] MEDS ORDERED: MIDAZOLAM HCL 2 MG/2 ML VIAL ONE ×2 (12:27→12:55)
[2019-10-21] MEDS ORDERED: FENTANYL CITRATE/PF 50MCG/ML 2ML VIAL ONE (12:27)
[2019-10-21] MEDS ORDERED: HYDROCODONE/ACETAMINOPHEN 5/325MG TABLET PO PRN (14:15)
[2019-10-21] MEDS ORDERED: VANCOMYCIN 1 G PREMIX 200 ML IV SCH (16:00)
[2019-10-21] MEDS: CEFAZOLIN 1000MG PREMIX 50 ML IV SCH (16:37)
[2019-10-21] MEDS: DOCUSATE SODIUM 100MG CAPSULE PO PRN (16:50)
[2019-10-21] MEDS: CLONIDINE 0.1MG TABLET PO PRN (21:57)
[2019-10-22] VITALS (13 sets, daily range): BP systolic 143–169; BP diastolic 61–84
[2019-10-22] MEDS: MORPHINE SULFATE 2 MG/ML CPJ (NOT FOR IM USE) IV PRN ×2 (04:26→14:25)
[2019-10-22] MEDS: BLOOD SUGAR DIAGNOSTIC STRIP TEST SCH ×4 (06:46→20:40)
[2019-10-22 06:52] LABS: BASOPHILS % 0.7 % (0.0-2.0); EOSINOPHILS % 4.4 % (0.0-5.0); HEMOGLOBIN. 10.2 g/dL (14.0-18.0); LYMPHOCYTES % 24.6 % (20.0-50.0); MEAN CORPUSCULAR VOLUME 82.3 fL (80.0-94.0); MEAN PLATELET VOLUME 9.3 fl (7.4-10.4); MONOCYTES % 7.3 % (2.0-8.0); PLATELET 212 x1000/uL (130-400); RED BLOOD CELL COUNT 3.77 mill/uL (4.7-6.1); RED CELL DISTRIBUTION WIDTH 15.4 % (11.6-14.6)
[2019-10-22 07:00] LABS: CHLORIDE 112 mEq/L (98-107)
[2019-10-22] MEDS: INSULIN LISPRO 100 UNITS/ML SUBCUT SCH ×4 (08:13→20:55)
[2019-10-22] MEDS: ASPIRIN 81MG EC TABLET PO SCH (08:14)
[2019-10-22] MEDS: GABAPENTIN 300MG CAPSULE PO SCH ×2 (08:14→17:37)
[2019-10-22] MEDS: CEFAZOLIN 1000MG PREMIX 50 ML IV SCH ×3 (08:14→17:37)
[2019-10-22] MEDS: CLONIDINE 0.1MG TABLET PO PRN (21:54)
[2019-10-23] VITALS: BP 137/69
[2019-10-23 01:11] VITALS: BP 137/69
[2019-10-23 02:00] VITALS: BP 136/78
== END 2019-10-23 03:00 | DRG 242 ==
LOC: ER 14:28 → ENRESERV 20:41 → 3WST 22:48
PROVIDERS: ADMIT Family Medicine Adult Medicine; ATTEND Family Medicine Adult Medicine
PROC: 0JH606Z Insertion of Pacemaker, Dual Chamber into Chest Subcutaneous Tissue and Fascia, Open Approach (ICD-10-PCS; principal; 2019-10-21)
PROC: 02HK3JZ Insertion of Pacemaker Lead into Right Ventricle, Percutaneous Approach (ICD-10-PCS; 2019-10-21)
PROC: 02H63JZ Insertion of Pacemaker Lead into Right Atrium, Percutaneous Approach (ICD-10-PCS; 2019-10-21)
DX: I49.5 Sick sinus syndrome (principal); E43 Unspecified severe protein-calorie malnutrition; N17.9 Acute kidney failure, unspecified; I12.9 Hypertensive chronic kidney disease with stage 1 through stage 4 chronic kidney disease, or unspecified chronic kidney disease; E11.51 Type 2 diabetes mellitus with diabetic peripheral angiopathy without gangrene; E11.22 Type 2 diabetes mellitus with diabetic chronic kidney disease; D64.9 Anemia, unspecified; I44.1 Atrioventricular block, second degree; E11.621 Type 2 diabetes mellitus with foot ulcer; E87.5 Hyperkalemia; L97.519 Non-pressure chronic ulcer of other part of right foot with unspecified severity; N18.9 Chronic kidney disease, unspecified; E11.40 Type 2 diabetes mellitus with diabetic neuropathy, unspecified; K59.00 Constipation, unspecified; Z79.02 Long term (current) use of antithrombotics/antiplatelets; Z79.82 Long term (current) use of aspirin; Z87.891 Personal history of nicotine dependence; Z89.512 Acquired absence of left leg below knee; Z79.899 Other long term (current) drug therapy; Z79.2 Long term (current) use of antibiotics; Z79.84 Long term (current) use of oral hypoglycemic drugs; Z89.421 Acquired absence of other right toe(s); Z68.26 Body mass index [BMI] 26.0-26.9, adult
CPT/HCPCS: 33208; 36415; 71045; 80048; 80053; 80061; 81003; 82550; 82962; 83735; 83880; 84132; 84443; 84484; 85025; 93005; 93306; 93970; 96372; 96374; 96375; 97162; 97166; 97530; 99291; A4565; C1785; C1898; J0461; J0610; J0690; J1650; J1815; J2250; J2270; J3010; J3370; J3490

== ENCOUNTER 2019-11-12 19:49 | Inpatient (IN) | payer MEDICARE, BC ==
[~2019-11-12] VITALS: Ht 167.6 cm; Wt 100.2 kg
[~2019-11-12 19:49] MED LIST changes: -AMOX-424 PO
[2019-11-12 20:00] VITALS: BP 142/66
[2019-11-12] MEDS ORDERED: ACETAMINOPHEN 325MG TABLET PO PRN (21:15)
[2019-11-12] MEDS ORDERED: CLONIDINE 0.1MG TABLET PO PRN (21:15)
[2019-11-12] MEDS ORDERED: DEXTROSE 50% WATER 50ML SYRINGE IV PRN (21:15)
[2019-11-12 22:00] VITALS: BP 142/66
[2019-11-12] MEDS ORDERED: LORAZEPAM 0.5MG TABLET PO PRN (22:30)
[2019-11-12] MEDS ORDERED: MAGNESIUM HYDROXIDE 400MG/5ML 30ML UDC PO PRN (22:30)
[2019-11-12] MEDS ORDERED: DIPHENHYDRAMINE 50MG/ML VIAL IV PRN (22:30)
[2019-11-12] MEDS ORDERED: SENNOSIDES 8.6MG TABLET PO PRN (22:30)
[2019-11-12] MEDS ORDERED: IPRATROPIUM/ALBUTEROL 0.5-3(2.5)MG/3ML NEB HHN PRN (22:30)
[2019-11-12] MEDS ORDERED: MORPHINE SULFATE 2 MG/ML CPJ (NOT FOR IM USE) IV PRN (22:30)
[2019-11-12] MEDS ORDERED: GUAIFENESIN/CODEINE 200-20MG/10ML UDC PO PRN (22:30)
[2019-11-12] MEDS ORDERED: ONDANSETRON HCL 4MG/2ML INJ IV PRN (22:30)
[2019-11-12] MEDS ORDERED: DOCUSATE SODIUM 100MG CAPSULE PO PRN (22:30)
[2019-11-12] MEDS: SODIUM HYPOCHLORITE (0.25%) 480ML SOLUTION (HALF STRENGTH) TOP SCH (22:30)
[2019-11-12] MEDS: GABAPENTIN 300MG CAPSULE PO SCH (22:39)
[2019-11-12] MEDS: BLOOD SUGAR DIAGNOSTIC STRIP TEST SCH (22:51)
[2019-11-12] MEDS: INSULIN LISPRO 100 UNITS/ML SUBCUT SCH (22:52)
[2019-11-13] MEDS ORDERED: LEVOFLOXACIN 500MG PREMIX 100 ML IV SCH
[2019-11-13] MEDS: SODIUM HYPOCHLORITE (0.25%) 480ML SOLUTION (HALF STRENGTH) TOP SCH ×3 (05:32→22:00)
[2019-11-13] MEDS: BLOOD SUGAR DIAGNOSTIC STRIP TEST SCH ×4 (06:18→21:00)
[2019-11-13] MEDS: INSULIN LISPRO 100 UNITS/ML SUBCUT SCH ×3 (06:28→22:14)
[2019-11-13] MEDS ORDERED: BLOOD SUGAR DIAGNOSTIC STRIP TEST SCH (06:30)
[2019-11-13 08:00] VITALS: BP 148/78
[2019-11-13 08:17] LABS: HEMATOCRIT. 32.9 % (42.0-52.0); HEMOGLOBIN. 10.8 g/dL (14.0-18.0); LYMPHOCYTES % 41.9 % (20.0-50.0); MEAN CORPUSCULAR HEMOGLOBIN 27.3 pg (28.0-32.0); MEAN PLATELET VOLUME 8.7 fl (7.4-10.4); MONOCYTES % 7.7 % (2.0-8.0); NEUTROPHILS % 40.4 % (40.0-76.0); PLATELET 225 x1000/uL (130-400); RED BLOOD CELL COUNT 3.97 mill/uL (4.7-6.1); RED CELL DISTRIBUTION WIDTH 15.5 % (11.6-14.6)
[2019-11-13] MEDS ORDERED: INSULIN LISPRO 100 UNITS/ML SUBCUT SCH (09:00)
[2019-11-13] MEDS: DOCUSATE SODIUM 250MG CAPSULE PO SCH (09:56)
[2019-11-13] MEDS: ASPIRIN 81MG TABLET PO SCH (09:56)
[2019-11-13] MEDS: AMLODIPINE 5MG TABLET PO SCH (09:57)
[2019-11-13] MEDS: GABAPENTIN 300MG CAPSULE PO SCH ×2 (09:57→22:08)
[2019-11-13] MEDS: CLOPIDOGREL 75MG TABLET PO SCH (09:58)
[2019-11-13 10:11] LABS: CHLORIDE 110 mEq/L (98-107)
[2019-11-13] MEDS: HYDROCODONE/ACETAMINOPHEN 5/325MG TABLET PO PRN (10:24)
[2019-11-13] MEDS ORDERED: LEVOFLOXACIN 500MG PREMIX 100 ML IV NR (13:00)
[2019-11-13] MEDS: HEPARIN 5000 UNITS/ML VIAL SUBCUT SCH ×2 (13:05→22:08)
[2019-11-13 20:00] VITALS: BP 139/63
[2019-11-13] MEDS ORDERED: MAGNESIUM/ALUMINUM HYDROXIDE/SIMETHICONE 30ML UDC PO PRN (20:00)
[2019-11-13] MEDS ORDERED: LEVOFLOXACIN 250MG PREMIX 50 ML IV SCH (21:00)
[2019-11-13] MEDS ORDERED: INSULIN GLARGINE UD 100 UNITS/ML SYR SUBCUT SCH ×2 (22:00)
[2019-11-14] MEDS: SODIUM HYPOCHLORITE (0.25%) 480ML SOLUTION (HALF STRENGTH) TOP SCH ×3 (05:04→22:00)
[2019-11-14] MEDS: BLOOD SUGAR DIAGNOSTIC STRIP TEST SCH ×4 (06:09→21:51)
[2019-11-14] MEDS: INSULIN LISPRO 100 UNITS/ML SUBCUT SCH ×4 (06:10→22:50)
[2019-11-14 07:23] LABS: BASOPHILS % 0.7 % (0.0-2.0); EOSINOPHILS % 8.5 % (0.0-5.0); HEMATOCRIT. 31.7 % (42.0-52.0); HEMOGLOBIN. 10.6 g/dL (14.0-18.0); LYMPHOCYTES % 37.2 % (20.0-50.0); MEAN CORPUSCULAR HEMOGLOBIN 27.6 pg (28.0-32.0); MEAN CORPUSCULAR VOLUME 82.3 fL (80.0-94.0); MONOCYTES % 5.9 % (2.0-8.0); NEUTROPHILS % 47.7 % (40.0-76.0); PLATELET 218 x1000/uL (130-400); RED BLOOD CELL COUNT 3.85 mill/uL (4.7-6.1); RED CELL DISTRIBUTION WIDTH 15.6 % (11.6-14.6)
[2019-11-14 08:00] VITALS: BP 161/47
[2019-11-14] MEDS ORDERED: LACTULOSE 20G/30ML UDC PO PRN (09:00)
[2019-11-14] MEDS: LACTULOSE 20G/30ML UDC PO SCH ×3 (09:13→17:00)
[2019-11-14] MEDS: CLOPIDOGREL 75MG TABLET PO SCH (09:15)
[2019-11-14] MEDS: ASPIRIN 81MG TABLET PO SCH (09:15)
[2019-11-14] MEDS: AMLODIPINE 5MG TABLET PO SCH (09:15)
[2019-11-14] MEDS: GABAPENTIN 300MG CAPSULE PO SCH ×2 (09:15→21:33)
[2019-11-14] MEDS: HEPARIN 5000 UNITS/ML VIAL SUBCUT SCH ×2 (09:17→21:35)
[2019-11-14] MEDS: DOCUSATE SODIUM 250MG CAPSULE PO SCH (09:33)
[2019-11-14] MEDS ORDERED: MAGNESIUM HYDROXIDE 400MG/5ML 30ML UDC PO PRN (13:15)
[2019-11-14] MEDS ORDERED: BISACODYL 10MG SUPP PR PRN (13:15)
[2019-11-14] MEDS: HYDRALAZINE HCL 10MG TABLET PO SCH ×2 (14:05→21:36)
[2019-11-14] MEDS ORDERED: NA PHOS,M-B/NA PHOS,DI-BA ENEMA 118ML PR PRN (16:45)
[2019-11-14] MEDS: DOCUSATE SODIUM 100MG CAPSULE PO SCH (17:00)
[2019-11-14 20:00] VITALS: BP 146/65
[2019-11-14] MEDS: POLYETHYLENE GLYCOL 3350 (17GM) 1 DOSE PACK PO SCH (21:00)
[2019-11-14] MEDS: SENNOSIDES/DOCUSATE SOD 8.6/50MG TABLET PO SCH ×2 (21:00→21:34)
[2019-11-14] MEDS: LEVOFLOXACIN 250MG PREMIX 50 ML IV SCH (21:51)
[2019-11-14] MEDS: INSULIN GLARGINE UD 100 UNITS/ML SYR SUBCUT SCH (22:55)
[2019-11-15] MEDS: SODIUM HYPOCHLORITE (0.25%) 480ML SOLUTION (HALF STRENGTH) TOP SCH ×3 (06:00→22:00)
[2019-11-15] MEDS: HYDRALAZINE HCL 10MG TABLET PO SCH ×3 (06:42→21:09)
[2019-11-15] MEDS: INSULIN LISPRO 100 UNITS/ML SUBCUT SCH ×4 (06:43→21:21)
[2019-11-15] MEDS: BLOOD SUGAR DIAGNOSTIC STRIP TEST SCH ×4 (06:43→21:23)
[2019-11-15 07:05] LABS: BASOPHILS % 0.6 % (0.0-2.0); EOSINOPHILS % 7.3 % (0.0-5.0); HEMOGLOBIN. 11.6 g/dL (14.0-18.0); LYMPHOCYTES % 38.6 % (20.0-50.0); MEAN CORPUSCULAR HEMOGLOBIN 27.6 pg (28.0-32.0); MEAN PLATELET VOLUME 8.9 fl (7.4-10.4); MONOCYTES % 5.2 % (2.0-8.0); NEUTROPHILS % 48.3 % (40.0-76.0); PLATELET 231 x1000/uL (130-400); RED BLOOD CELL COUNT 4.21 mill/uL (4.7-6.1); RED CELL DISTRIBUTION WIDTH 15.6 % (11.6-14.6)
[2019-11-15 07:42] LABS: PHOSPHORUS 3.3 mg/dL (2.5-4.9)
[2019-11-15 07:54] LABS: FOLIC ACID (FOLATE) SERUM 14.6 ng/mL (>5.38)
[2019-11-15 08:00] VITALS: BP 126/58
[2019-11-15] MEDS: ASPIRIN 81MG TABLET PO SCH (08:39)
[2019-11-15] MEDS: HEPARIN 5000 UNITS/ML VIAL SUBCUT SCH ×2 (08:39→21:08)
[2019-11-15] MEDS: AMLODIPINE 5MG TABLET PO SCH (08:39)
[2019-11-15] MEDS: CLOPIDOGREL 75MG TABLET PO SCH (08:39)
[2019-11-15] MEDS: DOCUSATE SODIUM 100MG CAPSULE PO SCH ×2 (08:40→17:42)
[2019-11-15] MEDS: GABAPENTIN 300MG CAPSULE PO SCH ×2 (08:40→21:08)
[2019-11-15 08:53] LABS: PROSTRATE SPECIFIC AG TOTAL 0.72 ng/mL (0.0-4.0)
[2019-11-15] MEDS ORDERED: CYANOCOBALAMIN 1000MCG/ML VIAL IM NR (15:00)
[2019-11-15] MEDS: HYDROCODONE/ACETAMINOPHEN 5/325MG TABLET PO PRN (15:13)
[2019-11-15 20:00] VITALS: BP 145/65
[2019-11-15] MEDS: LEVOFLOXACIN 250MG PREMIX 50 ML IV SCH (21:07)
[2019-11-15] MEDS: POLYETHYLENE GLYCOL 3350 (17GM) 1 DOSE PACK PO SCH (21:08)
[2019-11-15] MEDS: INSULIN GLARGINE UD 100 UNITS/ML SYR SUBCUT SCH (22:44)
[2019-11-16] MEDS: SODIUM HYPOCHLORITE (0.25%) 480ML SOLUTION (HALF STRENGTH) TOP SCH ×3 (06:00→22:00)
[2019-11-16] MEDS: BLOOD SUGAR DIAGNOSTIC STRIP TEST SCH ×4 (06:18→21:46)
[2019-11-16] MEDS: HYDRALAZINE HCL 10MG TABLET PO SCH (06:18)
[2019-11-16] MEDS: INSULIN LISPRO 100 UNITS/ML SUBCUT SCH ×4 (06:18→22:58)
[2019-11-16 08:00] VITALS: BP 138/70
[2019-11-16 08:04] LABS: BASOPHILS % 0.5 % (0.0-2.0); HEMATOCRIT. 32.3 % (42.0-52.0); HEMOGLOBIN. 10.7 g/dL (14.0-18.0); LYMPHOCYTES % 39.4 % (20.0-50.0); MEAN CORPUSCULAR HEMOGLOBIN 27.5 pg (28.0-32.0); MEAN CORPUSCULAR VOLUME 82.8 fL (80.0-94.0); MEAN PLATELET VOLUME 9.3 fl (7.4-10.4); MONOCYTES % 6.1 % (2.0-8.0); PLATELET 221 x1000/uL (130-400); RED CELL DISTRIBUTION WIDTH 15.7 % (11.6-14.6)
[2019-11-16] MEDS: HEPARIN 5000 UNITS/ML VIAL SUBCUT SCH ×2 (09:17→21:46)
[2019-11-16] MEDS: GABAPENTIN 300MG CAPSULE PO SCH ×2 (09:18→21:45)
[2019-11-16] MEDS: CLOPIDOGREL 75MG TABLET PO SCH (09:18)
[2019-11-16] MEDS: AMLODIPINE 5MG TABLET PO SCH ×2 (09:18→21:00)
[2019-11-16] MEDS: ASPIRIN 81MG TABLET PO SCH (09:18)
[2019-11-16] MEDS: ASCORBIC ACID 500 MG TABLET PO SCH (09:18)
[2019-11-16] MEDS: DOCUSATE SODIUM 100MG CAPSULE PO SCH ×2 (09:19→17:13)
[2019-11-16] MEDS: ZINC SULFATE 220 MG ( 50 ) CAPSULE PO SCH (09:19)
[2019-11-16] MEDS: HYDRALAZINE HCL 25MG TABLET PO SCH ×2 (13:19→23:18)
[2019-11-16] MEDS ORDERED: LACTULOSE 20G/30ML UDC PO PRN (13:45)
[2019-11-16] MEDS ORDERED: SODIUM POLYSTYRENE SULFONATE 15 G/60 ML BOT PO NR (15:00)
[2019-11-16] MEDS: LACTULOSE 20G/30ML UDC PO SCH ×2 (17:13→21:00)
[2019-11-16 20:00] VITALS: BP 98/62
[2019-11-16] MEDS: POLYETHYLENE GLYCOL 3350 (17GM) 1 DOSE PACK PO SCH (21:00)
[2019-11-16] MEDS: LEVOFLOXACIN 250MG TABLET PO SCH (21:44)
[2019-11-16] MEDS: INSULIN GLARGINE UD 100 UNITS/ML SYR SUBCUT SCH (23:17)
[2019-11-17] MEDS: SODIUM HYPOCHLORITE (0.25%) 480ML SOLUTION (HALF STRENGTH) TOP SCH ×3 (06:00→22:00)
[2019-11-17] MEDS: HYDRALAZINE HCL 25MG TABLET PO SCH ×3 (06:26→22:08)
[2019-11-17] MEDS: INSULIN LISPRO 100 UNITS/ML SUBCUT SCH ×5 (06:48→21:50)
[2019-11-17] MEDS: BLOOD SUGAR DIAGNOSTIC STRIP TEST SCH ×4 (06:48→21:50)
[2019-11-17 08:23] VITALS: BP 136/65
[2019-11-17 08:26] LABS: BASOPHILS % 0.8 % (0.0-2.0); EOSINOPHILS % 6.4 % (0.0-5.0); HEMATOCRIT. 33.8 % (42.0-52.0); HEMOGLOBIN. 11.1 g/dL (14.0-18.0); LYMPHOCYTES % 38.5 % (20.0-50.0); MEAN CORPUSCULAR HEMOGLOBIN 27.6 pg (28.0-32.0); MEAN CORPUSCULAR VOLUME 84.1 fL (80.0-94.0); MEAN PLATELET VOLUME 9.3 fl (7.4-10.4); NEUTROPHILS % 47.3 % (40.0-76.0); PLATELET 197 x1000/uL (130-400); RED BLOOD CELL COUNT 4.02 mill/uL (4.7-6.1); RED CELL DISTRIBUTION WIDTH 16.1 % (11.6-14.6)
[2019-11-17] MEDS: LACTULOSE 20G/30ML UDC PO SCH ×2 (09:00→17:00)
[2019-11-17] MEDS: ASPIRIN 81MG TABLET PO SCH (09:34)
[2019-11-17] MEDS: ZINC SULFATE 220 MG ( 50 ) CAPSULE PO SCH (09:34)
[2019-11-17] MEDS: CLOPIDOGREL 75MG TABLET PO SCH (09:34)
[2019-11-17] MEDS: AMLODIPINE 5MG TABLET PO SCH ×2 (09:34→22:08)
[2019-11-17] MEDS: ASCORBIC ACID 500 MG TABLET PO SCH (09:35)
[2019-11-17] MEDS: GABAPENTIN 300MG CAPSULE PO SCH ×2 (09:35→21:50)
[2019-11-17] MEDS: DOCUSATE SODIUM 100MG CAPSULE PO SCH ×2 (09:35→17:00)
[2019-11-17] MEDS: HEPARIN 5000 UNITS/ML VIAL SUBCUT SCH ×2 (09:36→21:51)
[2019-11-17] MEDS: HYDROCODONE/ACETAMINOPHEN 5/325MG TABLET PO PRN (15:43)
[2019-11-17] MEDS ORDERED: BISACODYL 10MG SUPP PR PRN (16:00)
[2019-11-17] MEDS ORDERED: NA PHOS,M-B/NA PHOS,DI-BA ENEMA 118ML PR PRN (16:00)
[2019-11-17 20:00] VITALS: BP 140/66
[2019-11-17] MEDS: POLYETHYLENE GLYCOL 3350 (17GM) 1 DOSE PACK PO SCH (21:00)
[2019-11-17] MEDS: LEVOFLOXACIN 250MG TABLET PO SCH (21:49)
[2019-11-17] MEDS: INSULIN GLARGINE UD 100 UNITS/ML SYR SUBCUT SCH (22:09)
[2019-11-18] MEDS: SODIUM HYPOCHLORITE (0.25%) 480ML SOLUTION (HALF STRENGTH) TOP SCH ×3 (06:00→22:00)
[2019-11-18] MEDS: BLOOD SUGAR DIAGNOSTIC STRIP TEST SCH ×4 (06:17→21:00)
[2019-11-18] MEDS: HYDRALAZINE HCL 25MG TABLET PO SCH ×3 (06:17→22:23)
[2019-11-18] MEDS: INSULIN LISPRO 100 UNITS/ML SUBCUT SCH ×7 (06:17→21:00)
[2019-11-18 07:07] LABS: BASOPHILS % 0.8 % (0.0-2.0); HEMATOCRIT. 33.5 % (42.0-52.0); HEMOGLOBIN. 11.2 g/dL (14.0-18.0); MEAN CORPUSCULAR HEMOGLOBIN 27.6 pg (28.0-32.0); MEAN CORPUSCULAR VOLUME 82.6 fL (80.0-94.0); MONOCYTES % 7.7 % (2.0-8.0); NEUTROPHILS % 48.5 % (40.0-76.0); PLATELET 190 x1000/uL (130-400); RED BLOOD CELL COUNT 4.05 mill/uL (4.7-6.1); RED CELL DISTRIBUTION WIDTH 15.9 % (11.6-14.6)
[2019-11-18 08:00] VITALS: BP 137/63
[2019-11-18 08:07] LABS: 25-HYDROXY VITAMIN D3 31 ng/mL (.)
[2019-11-18] MEDS: LACTULOSE 20G/30ML UDC PO SCH ×2 (09:00→17:00)
[2019-11-18] MEDS: ASCORBIC ACID 500 MG TABLET PO SCH (09:34)
[2019-11-18] MEDS: GABAPENTIN 300MG CAPSULE PO SCH ×2 (09:34→22:23)
[2019-11-18] MEDS: DOCUSATE SODIUM 100MG CAPSULE PO SCH ×2 (09:34→17:32)
[2019-11-18] MEDS: CLOPIDOGREL 75MG TABLET PO SCH (09:34)
[2019-11-18] MEDS: AMLODIPINE 5MG TABLET PO SCH ×2 (09:34→22:23)
[2019-11-18] MEDS: ASPIRIN 81MG TABLET PO SCH (09:34)
[2019-11-18] MEDS: ZINC SULFATE 220 MG ( 50 ) CAPSULE PO SCH (09:34)
[2019-11-18] MEDS ORDERED: INSULIN LISPRO 100 UNITS/ML SUBCUT SCH (11:30)
[2019-11-18 13:00] VITALS: BP 135/61
[2019-11-18] MEDS: HEPARIN 5000 UNITS/ML VIAL SUBCUT SCH ×2 (17:33→22:24)
[2019-11-18 20:00] VITALS: BP 142/66
[2019-11-18] MEDS ORDERED: ERGOCALCIFEROL 50000UNITS CAPSULE PO SCH (20:00)
[2019-11-18] MEDS: LEVOFLOXACIN 250MG TABLET PO SCH (22:22)
[2019-11-18] MEDS: POLYETHYLENE GLYCOL 3350 (17GM) 1 DOSE PACK PO SCH (22:24)
[2019-11-18] MEDS: INSULIN GLARGINE UD 100 UNITS/ML SYR SUBCUT SCH (23:43)
[2019-11-19] MEDS: SODIUM HYPOCHLORITE (0.25%) 480ML SOLUTION (HALF STRENGTH) TOP SCH ×3 (06:00→23:54)
[2019-11-19] MEDS: HYDRALAZINE HCL 25MG TABLET PO SCH ×3 (06:31→21:24)
[2019-11-19] MEDS: BLOOD SUGAR DIAGNOSTIC STRIP TEST SCH ×4 (06:32→21:00)
[2019-11-19] MEDS: INSULIN LISPRO 100 UNITS/ML SUBCUT SCH ×7 (07:00→23:58)
[2019-11-19 07:25] LABS: BASOPHILS % 0.9 % (0.0-2.0); EOSINOPHILS % 7.1 % (0.0-5.0); HEMATOCRIT. 33.7 % (42.0-52.0); HEMOGLOBIN. 11.2 g/dL (14.0-18.0); LYMPHOCYTES % 38.5 % (20.0-50.0); MEAN CORPUSCULAR HEMOGLOBIN 27.7 pg (28.0-32.0); MEAN CORPUSCULAR VOLUME 83.2 fL (80.0-94.0); MONOCYTES % 7.2 % (2.0-8.0); NEUTROPHILS % 46.3 % (40.0-76.0); PLATELET 197 x1000/uL (130-400); RED BLOOD CELL COUNT 4.05 mill/uL (4.7-6.1); RED CELL DISTRIBUTION WIDTH 15.7 % (11.6-14.6)
[2019-11-19 08:27] VITALS: BP 129/66
[2019-11-19] MEDS: LACTULOSE 20G/30ML UDC PO SCH ×2 (09:00→17:00)
[2019-11-19] MEDS: AMLODIPINE 5MG TABLET PO SCH ×2 (09:44→21:25)
[2019-11-19] MEDS: ZINC SULFATE 220 MG ( 50 ) CAPSULE PO SCH (09:44)
[2019-11-19] MEDS: HEPARIN 5000 UNITS/ML VIAL SUBCUT SCH ×2 (09:44→21:24)
[2019-11-19] MEDS: ASPIRIN 81MG TABLET PO SCH (09:44)
[2019-11-19] MEDS: GABAPENTIN 300MG CAPSULE PO SCH ×2 (09:44→21:25)
[2019-11-19] MEDS: CLOPIDOGREL 75MG TABLET PO SCH (09:44)
[2019-11-19] MEDS: ASCORBIC ACID 500 MG TABLET PO SCH (09:45)
[2019-11-19] MEDS: DOCUSATE SODIUM 100MG CAPSULE PO SCH ×2 (09:45→17:00)
[2019-11-19 20:00] VITALS: BP 141/69
[2019-11-19] MEDS: LEVOFLOXACIN 250MG TABLET PO SCH (21:25)
[2019-11-19] MEDS: POLYETHYLENE GLYCOL 3350 (17GM) 1 DOSE PACK PO SCH (21:25)
[2019-11-20] MEDS: INSULIN GLARGINE UD 100 UNITS/ML SYR SUBCUT SCH ×2 (00:05→21:18)
[2019-11-20 06:30] LABS: EOSINOPHILS % 6.8 % (0.0-5.0); HEMATOCRIT. 32.2 % (42.0-52.0); HEMOGLOBIN. 10.7 g/dL (14.0-18.0); LYMPHOCYTES % 41.1 % (20.0-50.0); MEAN CORPUSCULAR HEMOGLOBIN 27.6 pg (28.0-32.0); MEAN CORPUSCULAR VOLUME 83.2 fL (80.0-94.0); NEUTROPHILS % 44.1 % (40.0-76.0); PLATELET 186 x1000/uL (130-400); RED BLOOD CELL COUNT 3.88 mill/uL (4.7-6.1); RED CELL DISTRIBUTION WIDTH 15.9 % (11.6-14.6)
[2019-11-20] MEDS: BLOOD SUGAR DIAGNOSTIC STRIP TEST SCH ×4 (06:41→20:30)
[2019-11-20] MEDS: SODIUM HYPOCHLORITE (0.25%) 480ML SOLUTION (HALF STRENGTH) TOP SCH ×3 (06:49→21:20)
[2019-11-20] MEDS: HYDRALAZINE HCL 25MG TABLET PO SCH ×3 (06:49→21:20)
[2019-11-20] MEDS: INSULIN LISPRO 100 UNITS/ML SUBCUT SCH ×7 (06:52→20:44)
[2019-11-20 08:24] VITALS: BP 142/66
[2019-11-20] MEDS: LACTULOSE 20G/30ML UDC PO SCH ×2 (09:00→16:36)
[2019-11-20] MEDS: ASPIRIN 81MG TABLET PO SCH (09:43)
[2019-11-20] MEDS: AMLODIPINE 5MG TABLET PO SCH ×2 (09:43→20:30)
[2019-11-20] MEDS: HEPARIN 5000 UNITS/ML VIAL SUBCUT SCH ×2 (09:44→20:29)
[2019-11-20] MEDS: CLOPIDOGREL 75MG TABLET PO SCH (09:44)
[2019-11-20] MEDS: DOCUSATE SODIUM 100MG CAPSULE PO SCH ×2 (09:44→16:28)
[2019-11-20] MEDS: GABAPENTIN 300MG CAPSULE PO SCH ×2 (09:44→20:30)
[2019-11-20] MEDS: ZINC SULFATE 220 MG ( 50 ) CAPSULE PO SCH (09:44)
[2019-11-20] MEDS: SILVER SULFADIAZINE 1% CREAM 25GM TOP SCH (10:42)
[2019-11-20] MEDS: ASCORBIC ACID 250 MG TABLET PO SCH (10:42)
[2019-11-20] MEDS: HYDROCODONE/ACETAMINOPHEN 5/325MG TABLET PO PRN (11:25)
[2019-11-20 20:00] VITALS: BP 131/63
[2019-11-20] MEDS: POLYETHYLENE GLYCOL 3350 (17GM) 1 DOSE PACK PO SCH (20:29)
[2019-11-21] MEDS: HYDRALAZINE HCL 25MG TABLET PO SCH ×3 (05:08→21:24)
[2019-11-21] MEDS: SODIUM HYPOCHLORITE (0.25%) 480ML SOLUTION (HALF STRENGTH) TOP SCH ×3 (05:09→21:27)
[2019-11-21] MEDS: BLOOD SUGAR DIAGNOSTIC STRIP TEST SCH ×4 (05:42→20:28)
[2019-11-21] MEDS: INSULIN LISPRO 100 UNITS/ML SUBCUT SCH ×7 (06:15→20:41)
[2019-11-21 08:25] VITALS: BP 145/69
[2019-11-21] MEDS: CLOPIDOGREL 75MG TABLET PO SCH (09:09)
[2019-11-21] MEDS: DOCUSATE SODIUM 100MG CAPSULE PO SCH ×2 (09:09→17:19)
[2019-11-21] MEDS: ASPIRIN 81MG TABLET PO SCH (09:09)
[2019-11-21] MEDS: HEPARIN 5000 UNITS/ML VIAL SUBCUT SCH ×2 (09:09→20:27)
[2019-11-21] MEDS: GABAPENTIN 300MG CAPSULE PO SCH ×2 (09:09→20:27)
[2019-11-21] MEDS: ZINC SULFATE 220 MG ( 50 ) CAPSULE PO SCH (09:09)
[2019-11-21] MEDS: ASCORBIC ACID 250 MG TABLET PO SCH (09:09)
[2019-11-21] MEDS: SILVER SULFADIAZINE 1% CREAM 25GM TOP SCH (09:09)
[2019-11-21] MEDS: AMLODIPINE 5MG TABLET PO SCH ×2 (09:10→20:27)
[2019-11-21] MEDS: LACTULOSE 20G/30ML UDC PO SCH ×2 (09:10→17:00)
[2019-11-21 20:00] VITALS: BP 146/64
[2019-11-21] MEDS: POLYETHYLENE GLYCOL 3350 (17GM) 1 DOSE PACK PO SCH (20:26)
[2019-11-21] MEDS: INSULIN GLARGINE UD 100 UNITS/ML SYR SUBCUT SCH (21:24)
[2019-11-22] MEDS: BLOOD SUGAR DIAGNOSTIC STRIP TEST SCH ×4 (05:35→21:17)
[2019-11-22] MEDS: HYDRALAZINE HCL 25MG TABLET PO SCH ×4 (06:06→23:09)
[2019-11-22] MEDS: SODIUM HYPOCHLORITE (0.25%) 480ML SOLUTION (HALF STRENGTH) TOP SCH ×3 (06:06→22:00)
[2019-11-22] MEDS: INSULIN LISPRO 100 UNITS/ML SUBCUT SCH ×7 (06:07→21:45)
[2019-11-22 07:15] LABS: CHLORIDE 110 mEq/L (98-107)
[2019-11-22 07:30] LABS: BASOPHILS % 0.8 % (0.0-2.0); EOSINOPHILS % 8.4 % (0.0-5.0); HEMATOCRIT. 35.1 % (42.0-52.0); HEMOGLOBIN. 11.6 g/dL (14.0-18.0); LYMPHOCYTES % 36.3 % (20.0-50.0); MEAN CORPUSCULAR HEMOGLOBIN 27.4 pg (28.0-32.0); MEAN CORPUSCULAR VOLUME 83.1 fL (80.0-94.0); MONOCYTES % 6.3 % (2.0-8.0); NEUTROPHILS % 48.2 % (40.0-76.0); PLATELET 187 x1000/uL (130-400); RED BLOOD CELL COUNT 4.22 mill/uL (4.7-6.1)
[2019-11-22 08:00] VITALS: BP 133/57
[2019-11-22] MEDS: CLOPIDOGREL 75MG TABLET PO SCH (09:44)
[2019-11-22] MEDS: ASPIRIN 81MG TABLET PO SCH (09:44)
[2019-11-22] MEDS: AMLODIPINE 5MG TABLET PO SCH ×2 (09:44→21:17)
[2019-11-22] MEDS: GABAPENTIN 300MG CAPSULE PO SCH ×2 (09:44→21:17)
[2019-11-22] MEDS: LACTULOSE 20G/30ML UDC PO SCH ×2 (09:44→17:00)
[2019-11-22] MEDS: ZINC SULFATE 220 MG ( 50 ) CAPSULE PO SCH (09:44)
[2019-11-22] MEDS: ASCORBIC ACID 250 MG TABLET PO SCH (09:44)
[2019-11-22] MEDS: SILVER SULFADIAZINE 1% CREAM 25GM TOP SCH (09:44)
[2019-11-22] MEDS ORDERED: SODIUM POLYSTYRENE SULFONATE 15 G/60 ML BOT PO ONE (11:00)
[2019-11-22] MEDS: DOCUSATE SODIUM 100MG CAPSULE PO SCH ×2 (11:47→17:00)
[2019-11-22] MEDS: HEPARIN 5000 UNITS/ML VIAL SUBCUT SCH ×2 (11:48→21:16)
[2019-11-22] MEDS ORDERED: SODIUM POLYSTYRENE SULFONATE 15 G/60 ML BOT PO NR ×2 (12:00→13:30)
[2019-11-22] MEDS ORDERED: LACT10SO7 PO (12:13)
[2019-11-22] MEDS ORDERED: INSLIS SUBCUT ×3 (12:13)
[2019-11-22] MEDS ORDERED: MOM MT (12:13)
[2019-11-22] MEDS ORDERED: AMLO5TAB88 PO (12:13)
[2019-11-22] MEDS ORDERED: LANTUSUD SUBCUT (12:13)
[2019-11-22] MEDS ORDERED: ASC250 PO (12:13)
[2019-11-22] MEDS ORDERED: SILV20CR13 TOP (12:13)
[2019-11-22] MEDS ORDERED: ZINC220C2 PO (12:13)
[2019-11-22] MEDS ORDERED: HYDR-4134 PO (12:13)
[2019-11-22] MEDS ORDERED: DOCU-150 PO (12:13)
[2019-11-22] MEDS ORDERED: SENN-170 PO (12:13)
[2019-11-22] MEDS ORDERED: MAGNESIUM HYDROXIDE 400MG/5ML 30ML UDC PO PRN (12:45)
[2019-11-22] MEDS ORDERED: MAGNESIUM CITRATE 300ML SOLUTION PO NR (14:00)
[2019-11-22 20:00] VITALS: BP 142/61
[2019-11-22] MEDS: POLYETHYLENE GLYCOL 3350 (17GM) 1 DOSE PACK PO SCH (21:00)
[2019-11-22] MEDS: HYDROCODONE/ACETAMINOPHEN 5/325MG TABLET PO PRN (21:19)
[2019-11-22] MEDS: INSULIN GLARGINE UD 100 UNITS/ML SYR SUBCUT SCH (22:50)
[2019-11-23] MEDS: SODIUM HYPOCHLORITE (0.25%) 480ML SOLUTION (HALF STRENGTH) TOP SCH ×2 (06:00→13:43)
[2019-11-23 06:43] LABS: BASOPHILS % 0.9 % (0.0-2.0); HEMATOCRIT. 33.8 % (42.0-52.0); HEMOGLOBIN. 11.1 g/dL (14.0-18.0); LYMPHOCYTES % 41.1 % (20.0-50.0); MEAN CORPUSCULAR HEMOGLOBIN 27.4 pg (28.0-32.0); MEAN CORPUSCULAR VOLUME 83.3 fL (80.0-94.0); MEAN PLATELET VOLUME 9.4 fl (7.4-10.4); MONOCYTES % 7.6 % (2.0-8.0); NEUTROPHILS % 42.4 % (40.0-76.0); PLATELET 194 x1000/uL (130-400); RED BLOOD CELL COUNT 4.06 mill/uL (4.7-6.1); RED CELL DISTRIBUTION WIDTH 15.8 % (11.6-14.6)
[2019-11-23] MEDS: INSULIN LISPRO 100 UNITS/ML SUBCUT SCH ×4 (07:25→11:58)
[2019-11-23] MEDS: BLOOD SUGAR DIAGNOSTIC STRIP TEST SCH ×2 (07:29→11:20)
[2019-11-23 07:33] LABS: CHLORIDE 107 mEq/L (98-107)
[2019-11-23 07:46] VITALS: BP 125/60
[2019-11-23] MEDS: SILVER SULFADIAZINE 1% CREAM 25GM TOP SCH (08:59)
[2019-11-23] MEDS: ASCORBIC ACID 250 MG TABLET PO SCH (09:00)
[2019-11-23] MEDS: ASPIRIN 81MG TABLET PO SCH (09:00)
[2019-11-23] MEDS: LACTULOSE 20G/30ML UDC PO SCH (09:00)
[2019-11-23] MEDS: AMLODIPINE 5MG TABLET PO SCH (09:00)
[2019-11-23] MEDS: HEPARIN 5000 UNITS/ML VIAL SUBCUT SCH (09:00)
[2019-11-23] MEDS: GABAPENTIN 300MG CAPSULE PO SCH (09:00)
[2019-11-23] MEDS: DOCUSATE SODIUM 100MG CAPSULE PO SCH (09:01)
[2019-11-23] MEDS: ZINC SULFATE 220 MG ( 50 ) CAPSULE PO SCH (09:01)
[2019-11-23] MEDS: CLOPIDOGREL 75MG TABLET PO SCH (09:01)
[2019-11-23 09:55] VITALS: BP 125/60
[2019-11-23] MEDS: HYDRALAZINE HCL 25MG TABLET PO SCH (13:13)
== END 2019-11-23 14:15 | disposition home health service (06) | DRG 309 ==
PROVIDERS: ADMIT Physical Medicine & Rehabilitation Spinal Cord Injury Medicine; ATTEND Family Medicine Adult Medicine
DX: I49.5 Sick sinus syndrome (principal); I50.42 Chronic combined systolic (congestive) and diastolic (congestive) heart failure; I13.0 Hypertensive heart and chronic kidney disease with heart failure and stage 1 through stage 4 chronic kidney disease, or unspecified chronic kidney disease; N17.9 Acute kidney failure, unspecified; D64.9 Anemia, unspecified; E11.22 Type 2 diabetes mellitus with diabetic chronic kidney disease; E11.51 Type 2 diabetes mellitus with diabetic peripheral angiopathy without gangrene; E11.621 Type 2 diabetes mellitus with foot ulcer; E11.65 Type 2 diabetes mellitus with hyperglycemia; E78.5 Hyperlipidemia, unspecified; E87.5 Hyperkalemia; G54.6 Phantom limb syndrome with pain; N18.3 Chronic kidney disease, stage 3 (moderate); I25.10 Atherosclerotic heart disease of native coronary artery without angina pectoris; I42.9 Cardiomyopathy, unspecified; I44.1 Atrioventricular block, second degree; L97.519 Non-pressure chronic ulcer of other part of right foot with unspecified severity; L98.419 Non-pressure chronic ulcer of buttock with unspecified severity; Z89.612 Acquired absence of left leg above knee; Z95.0 Presence of cardiac pacemaker; E11.42 Type 2 diabetes mellitus with diabetic polyneuropathy
CPT/HCPCS: 36415; 80048; 80053; 82306; 82607; 82728; 82746; 82962; 83036; 83540; 83550; 83735; 84100; 84134; 84153; 84443; 85025; 93970; 97110; 97116; 97162; 97166; 97530; 97535; J1644; J1815; J1956; J3420; G0103